=== PATIENT | male | born 1975 | race Two or more races ===

== ENCOUNTER 2018-04-12 09:27 | Inpatient (IN) | payer OTHER ==
[2018-04-12 09:30] VITALS: BMI 23.1
--- NOTE | 2018-04-12 10:53 | HP ---
CIWA Score Nausea/Vomitin Muscle Tremors: 4-Moderate,w/Arms Extend Anxiety: 4-Mod. Anxious/Guarded Agitation: 0-Normal Activity Paroxysmal Sweats: No Perspiration Orientation: 1-Uncertain about Date Tacttile Disturbances: 1-Very Mild Itch/Numbness Auditory Disturbances: 1-Very Mild Visual Disturbances: 1-Very Mild Sensitivity Headache: 1-Very Mild CIWA-Ar Total Score: 15 - Admission Criteria OASAS Guidelines: Admission for Medically Managed Detox: Requires at least one of the followin. CIWA greater than 12 2. Seizures within the past 24 hours 3. Delirium tremens within the past 24 hours 4. Hallucinations within the past 24 hours 5. Acute intervention needed for co occurring medical disorder 6. Acute intervention needed for co occurring psychiatric disorder 7. Severe withdrawal that cannot be handled at a lower level of care (continued vomiting, continued diarrhea, abnormal vital signs) requiring intravenous medication and/or fluids 8. Patient presents the following: CIWA greater than 12 Admission Criteria Met: Admission criteria met Admission ROS BHS - HPI Chief Complaint: I'm tired of being me, tired of my life, I don't want to be this way. Allergies/Adverse Reactions: Allergies Allergy/AdvReac Type Severity Reaction Status Date / Time haloperidol [From Haldol] Allergy Severe LOCK JAW Verified 04/12/18 12:36 haloperidol lactate Allergy Severe LOCK JAW Verified 04/12/18 12:36 [From Haldol] shellfish derived AdvReac Verified 04/12/18 12:11 LACTOSE INTOLERANCE AdvReac DIARRHEA Uncoded 04/12/18 12:10 History of Present Illness: 42 yo gentleman here for detox from alcohol, also using cocaine. Last her in 2013 but was in detox at [facility] December 2017. Patient is homeless since end of December, lost his job at same time all related to alcohol use. History of one drug related seizure years ago, also with history of black outs. Was brought to [facility] ED due to intoxication. States he drinks first thing in the morning (a 'nip' to get going) and gets very shaky if he does not drink. Exam Limitations: Clinical Condition - Ebola screening Have you traveled outside of the country in the last 21 days: No (N) Have you had contact with anyone from an Ebola affected area: No Have you been sick,other than usual withdrawal symptoms: No Do you have a fever: No - Review of Systems Constitutional: Malaise, Weakness EENT: reports: No Symptoms Reported Respiratory: reports: No Symptoms reported Cardiac: reports: No Symptoms Reported GI: reports: Nausea, Poor Appetite, Poor Fluid Intake : reports: Frequency Musculoskeletal: reports: No Symptoms Reported Integumentary: reports: Dryness Neuro: reports: Headache, Tremors Endocrine: reports: No Symptoms Reported Hematology: reports: No Symptoms Reported Psychiatric: reports: Judgement Intact, Mood/Affect Appropiate, Anxious Other Systems: Reviewed and Negative Patient History - Patient Medical History Hx Anemia: No Hx Asthma: No Hx Chronic Obstructive Pulmonary Disease (COPD): No Hx Cancer: No Hx Cardiac Disorders: No Hx Congestive Heart Failure: No Hx Hypertension: No Hx Hypercholesterolemia: No Hx Pacemaker: No HX Cerebrovascular Accident: No Hx Seizures: Yes (alcohol related years ago) Hx Dementia: No Hx Diabetes: No Hx Gastrointestinal Disorders: No Hx Liver Disease: No Hx Genitourinary Disorders: No Hx Sexually Transmitted Disorders: Yes (hx syphilis - got PCN injections) Hx Renal Disease (ESRD): No Hx Thyroid Disease: No Hx Human Immunodeficiency Virus (HIV): No Hx Hepatitis C: No Hx Depression: Yes (hospitalized - last time 2018 at [facility]) Hx Suicide Attempt: Yes ([place] [address] [place] 2017) Hx Bipolar Disorder: Yes Hx Schizophrenia: No - Patient Surgical History Past Surgical History: No - PPD History Previous Implant?: Yes Documented Results: Negative w/proof Implanted On Prior [facility] Admission?: Yes Date: 07/22/13 Results: Negative PPD to be Administered?: Yes - Reproductive History Patient is a Female of Child Bearing Age (11 -55 yrs old): No (male) - Smoking Cessation Smoking history: Current every day smoker Have you smoked in the past 12 months: Yes Aproximately how many cigarettes per day: 10 Hx Chewing Tobacco Use: No Initiated information on smoking cessation: Yes 'Breaking Loose' booklet given: 04/12/18 (give on floor) - Substance & Tx. History Hx Alcohol Use: Yes Hx Substance Use: Yes Substance Use Type: Alcohol, Cocaine Hx Substance Use Treatment: Yes (detox, rehab) - Substances Abused alcohol Route: Oral Frequency: Daily Amount used: 12 sixteen beers; 1/2 pint liquor Age of first use: 18 Date of Last Use: 04/11/18 cocaine Route: Smoking Frequency: Daily Amount used: $100 Age of first use: 28 Date of Last Use: 04/11/18 Family Disease History - Family Disease History Family Disease History: Diabetes: Daughter (one age 20 - healthy), Other: Grandparent (grdfather emphysema; grandma allive), Father (does not knw father), Mother (, pneumonia, HIV, heroin user), Brother (one - living ) , Sister (one - living), Daughter Admission Physical Exam [facility] - Vital Signs Vital Signs: Vital Signs - 24 hr 04/12/18 09:29 Temperature 97.2 F L Pulse Rate 76 Respiratory 18 Rate Blood Pressure 94/60 - Physical General Appearance: Yes: Nourished, Appropriately Dressed, Moderate Distress, Tremorous, Anxious HEENTM: Yes: EOMI, Hearing grossly Normal, Normocephalic, Normal Voice, Other ( tongue coated) Respiratory: Yes: Normal Breath Sounds, No Respiratory Distress Neck: Yes: No masses,lesions,Nodules, Supple Breast: Yes: Breast Exam Deferred Cardiology: Yes: Regular Rhythm, Regular Rate Abdominal: Yes: Flat, Soft Genitourinary: Yes: Frequency Back: Yes: Normal Inspection Musculoskeletal: Yes: full range of Motion, Gait Steady Extremities: Yes: Normal Inspection, Non-Tender Neurological: Yes: Alert, Normal Mood/Affect, Normal Response Integumentary: Yes: Normal Color, Warm, Rash (left side of neck - slightly raised, occasionally itchy discrete bumps) Lymphatic: Yes: Within Normal Limits - Diagnostic (1) Alcohol dependence with uncomplicated withdrawal Current Visit: Yes Status: Chronic (2) Cocaine dependence Current Visit: Yes Status: Chronic Qualifiers: Substance use status: uncomplicated Qualified Code(s): F14.20 - Cocaine dependence, uncomplicated (3) History of seizure Current Visit: Yes Status: Chronic (4) H/O syphilis Current Visit: Yes Status: Chronic (5) Nicotine dependence Current Visit: Yes Status: Chronic Qualifiers: Nicotine product type: cigarettes Substance use status: uncomplicated Qualified Code(s): F17.210 - Nicotine dependence, cigarettes, uncomplicated Cleared for Admission [facility] - Detox or Rehab [facility] Level of Care: Medically Managed Detox Regimen/Protocol: Librium S Breath Alcohol Content Breath Alcohol Content: 0 Urine Drug Screen - Results Drug Screen Negative: No Urine Drug Screen Results: TOMY-Cocaine Inpatient Rehab Admission - Rehab Decision to Admit Inpatient rehab admission?: No
[2018-04-12] MEDS ORDERED: MAGNESIUM CITRATE 300 ML BOTTLE PO PRN (11:07)
[2018-04-12] MEDS ORDERED: MENTHOL/PHENOL 1 EACH UD MM PRN (11:07)
[2018-04-12] MEDS ORDERED: chlordiazePOXIDE HCL 25 MG CAPSULE PO PRN (11:07)
[2018-04-12] MEDS ORDERED: MAGNESIUM HYDROX 2400MG/30ML ORAL SUSPENSION 30 ML CUP PO PRN (11:07)
[2018-04-12] MEDS ORDERED: ACETAMINOPHEN 325 MG TABLET (FP) PO PRN (11:07)
[2018-04-12] MEDS ORDERED: guaiFENesin/D-METHORPHAN HB 10 ML UNIT-DOSE CUPS PO PRN (11:07)
[2018-04-12] MEDS ORDERED: MAG HYDROX/AL HYDROX/SIMETH 30 ML UNIT-DOSE CUP PO PRN (11:07)
[2018-04-12] MEDS ORDERED: LOPERAMIDE HCL 2 MG CAPSULE PO PRN (11:07)
[2018-04-12] MEDS ORDERED: P-EPHED 60MG/TRIPROLIDI 2.5MG TABLET PO PRN (11:07)
[2018-04-12] MEDS ORDERED: IBUPROFEN 400 MG TABLET (FP) PO PRN (11:07)
[2018-04-12] MEDS ORDERED: NICOTINE POLACRILEX 4 MG GUM BUC PRN (11:26)
[2018-04-12] MEDS: NICOTINE 14 MG/24 HOURS TOPICAL PATCH TD SCH (13:52)
[2018-04-12] MEDS: chlordiazePOXIDE HCL 25 MG CAPSULE PO SCH ×2 (18:42→22:42)
[2018-04-12] MEDS: THIAMINE HCL 100 MG TABLET (FP) PO SCH (22:42)
[2018-04-13] MEDS: chlordiazePOXIDE HCL 25 MG CAPSULE PO SCH ×4 (06:44→22:56)
--- NOTE | 2018-04-13 09:18 | CONSULT ---
[facility] Psychiatric Consult - Data Date of interview: 04/13/18 Admission source: [facility] Identifying data: Mr Fay is a 42 years old single Black male, father of a 19 years old daughter, unemployed receiving food stamp, homeless seeking detox treatment alcohol and cocaine Substance Abuse History: Reports history of alcohol and crack cocaine use. He started drinking alcohol at age 18, consumes half a pint of liquor & 12x 16oz of beer daily. Last drank on 04/11/18. He started smoking crack cocaine at age 28 , consumes $100 worth daily. Last smoked on 04/11/18. Refer to addiction counselor 's summary for further information Medical History: Significant for history of alcohol withdrawal seizure and treatment for syphilis. Smokes 10 cigarettes daily Psychiatric History: Patient is well known to creative writer from a previous encounter during an admission in this facility in July 2013. He reports history of Bipolar Disorder diagnosed in 2007 and has had more than 5 psychiatric inpatient hospitalizations. Still reports non-compliance with psychiatric outpatient services but visits ED for medication refills. Reports currently taking Zyprexa 5 mg po daily and Zoloft 50 mg po daily. External pharmacy record shows script for Olanzapine 5 mg#7 on 01/21/18 by provider Wero Castro. Acknowledges one suicidal attempt in 2011 [place] [address] [place]. At present feels very irritable and reports sleeping poorly Physical/Sexual Abuse/Trauma History: Denies history of emotional, physical or sexual abuse as well as DV relationship. No service Additional Comment: Reluctant to provide legal information Mental Status Exam - Mental Status Exam Alert and Oriented to: Time, Place, Person Cognitive Function: Fair Patient Appearance: Well Groomed Mood: Irritable Affect: Appropriate Patient Behavior: Cooperative Speech Pattern: Clear Voice Loudness: Normal Thought Process: Intact, Goal Oriented Thought Disorder: Not Present Hallucinations: Denies Suicidal Ideation: Denies Homicidal Ideation: Denies Insight/Judgement: Fair Sleep: Poorly Appetite: Fair Muscle strength/Tone: Normal Gait/Station: Normal Psychiatric Findings - Problem List ([place] 1, 2,3) (1) Bipolar disorder Current Visit: No Status: Chronic (2) Substance induced mood disorder Current Visit: Yes Status: Acute (3) Substance-induced sleep disorder Current Visit: Yes Status: Acute (4) Alcohol dependence with uncomplicated withdrawal Current Visit: Yes Status: Acute (5) Cocaine dependence Current Visit: Yes Status: Acute Qualifiers: Substance use status: uncomplicated Qualified Code(s): F14.20 - Cocaine dependence, uncomplicated (6) Nicotine dependence Current Visit: Yes Status: Chronic Qualifiers: Nicotine product type: cigarettes Substance use status: uncomplicated Qualified Code(s): F17.210 - Nicotine dependence, cigarettes, uncomplicated (7) H/O syphilis Current Visit: Yes Status: Chronic (8) History of seizure Current Visit: Yes Status: Chronic - Initial Treatment Plan Initial Treatment Plan: 1) Continue Zoloft 50 mg po daily and Zyprexa 5 mg po daily. 2) Continue inpatient detoxification
[2018-04-13 10:18] LABS: HEMATOCRIT 40.2 % (35.4-49); HEMOGLOBIN 13.3 GM/dL (11.7-16.9); MCH 29.7 pg (25.7-33.7); MEAN PLT VOLUME 8.3 fl (7.5-11.1); PLATELET COUNT 231 K/MM3 (134-434); RBC 4.47 M/mm3 (4.00-5.60); RDW 14.6 % (11.9-15.9); WHITE BLOOD COUNT 4.3 K/mm3 (4.0-10.0)
[2018-04-13] MEDS: PRENATAL VITAMINS W/ FOLIC ACID TABLET (FP) PO SCH (10:20)
[2018-04-13] MEDS: NICOTINE 14 MG/24 HOURS TOPICAL PATCH TD SCH (10:20)
[2018-04-13 10:39] LABS: ALBUMIN 3.2 g/dl (3.4-5.0); ALK PHOS 79 U/L (45-117); ANION GAP 5 MMOL/L (8-16); BILIRUBIN,TOTAL 0.1 mg/dL (0.2-1); BLOOD UREA NITROGEN 11 mg/dL (7-18); CALCIUM 8.4 mg/dL (8.5-10.1); CHLORIDE 107 mmol/L (98-107); CO2 27 mmol/L (21-32); CREATININE 0.9 mg/dL (0.55-1.3); GLUCOSE,RANDOM 89 mg/dL (74-106); POTASSIUM 4.3 mmol/L (3.5-5.1); SGOT/AST 15 U/L (15-37); SGPT/ALT 19 U/L (13-61); SODIUM 140 mmol/L (136-145)
[2018-04-13] MEDS: OLANZapine 5 MG TABLET PO SCH (11:37)
[2018-04-13] MEDS: SERTRALINE HCL 50 MG TABLET (FP) PO SCH (11:37)
--- NOTE | 2018-04-13 11:49 | PN ---
S CIWA - CIWA Score Nausea/Vomitin-Mild Nausea/No Vomiting Muscle Tremors: 4-Moderate,w/Arms Extend Anxiety: 3 Agitation: 2 Paroxysmal Sweats: 1-Minimal Palms Moist Orientation: 1-Uncertain about Date Tacttile Disturbances: 0-None Auditory Disturbances: 0-None Visual Disturbances: 0-None Headache: 2-Mild CIWA-Ar Total Score: 14 BHS Progress Note (SOAP) Subjective: tremor sweat restlessness irritable Objective: 04/13/18 11:50 Vital Signs Temperature 97.3 F L 04/13/18 09:34 Pulse Rate 66 04/13/18 09:34 Respiratory Rate 18 04/13/18 09:34 Blood Pressure 107/60 04/13/18 09:34 O2 Sat by Pulse Oximetry (%) Laboratory Last Values WBC 4.3 K/mm3 (4.0-10.0) 04/13/18 07:45 RBC 4.47 M/mm3 (4.00-5.60) 04/13/18 07:45 Hgb 13.3 GM/dL (11.7-16.9) 04/13/18 07:45 Hct 40.2 % (35.4-49) 04/13/18 07:45 MCV 90.0 fl (80-96) 04/13/18 07:45 MCH 29.7 pg (25.7-33.7) 04/13/18 07:45 MCHC 33.0 g/dl (32.0-35.9) 04/13/18 07:45 RDW 14.6 % (11.9-15.9) D 04/13/18 07:45 Plt Count 231 K/MM3 (134-434) D 04/13/18 07:45 MPV 8.3 fl (7.5-11.1) 04/13/18 07:45 Sodium 140 mmol/L (136-145) 04/13/18 07:45 Potassium 4.3 mmol/L (3.5-5.1) 04/13/18 07:45 Chloride 107 mmol/L (98-107) 04/13/18 07:45 Carbon Dioxide 27 mmol/L (21-32) 04/13/18 07:45 Anion Gap 5 MMOL/L (8-16) L 04/13/18 07:45 BUN 11 mg/dL (7-18) 04/13/18 07:45 Creatinine 0.9 mg/dL (0.55-1.3) 04/13/18 07:45 Creat Clearance w eGFR > 60 (>60) 04/13/18 07:45 Random Glucose 89 mg/dL (74-106) 04/13/18 07:45 Calcium 8.4 mg/dL (8.5-10.1) L 04/13/18 07:45 Total Bilirubin 0.1 mg/dL (0.2-1) L 04/13/18 07:45 AST 15 U/L (15-37) 04/13/18 07:45 ALT 19 U/L (13-61) 04/13/18 07:45 Alkaline Phosphatase 79 U/L (45-117) 04/13/18 07:45 Total Protein 6.0 g/dl (6.4-8.2) L 04/13/18 07:45 Albumin 3.2 g/dl (3.4-5.0) L 04/13/18 07:45 HIV 1&2 Antibody Screen Negative 04/13/18 07:45 HIV P24 Antigen Negative 04/13/18 07:45 lab noted 04/13/18 11:51 report rpr 1:1 Assessment: 04/13/18 11:50 withdrawal sx Plan: continue detox
[2018-04-13 12:09] LABS: RPR REACTIVE 1:1 (NONREACTIVE)
[2018-04-13 12:11] LABS: TREPONEMA ANTIBODY PREVIOUSLY REACTIVE (NONREACTIVE)
[2018-04-13] MEDS: THIAMINE HCL 100 MG TABLET (FP) PO SCH (22:55)
[2018-04-13] MEDS: MELATONIN 5 MG TABLETS PO PRN (22:57)
[2018-04-14] MEDS: chlordiazePOXIDE HCL 25 MG CAPSULE PO SCH ×2 (06:14→10:07)
[2018-04-14] MEDS: SERTRALINE HCL 50 MG TABLET (FP) PO SCH (10:08)
[2018-04-14] MEDS: OLANZapine 5 MG TABLET PO SCH (10:08)
[2018-04-14] MEDS: PRENATAL VITAMINS W/ FOLIC ACID TABLET (FP) PO SCH (10:08)
[2018-04-14] MEDS: NICOTINE 14 MG/24 HOURS TOPICAL PATCH TD SCH (10:09)
--- NOTE | 2018-04-14 10:57 | PN ---
S CIWA - CIWA Score Nausea/Vomitin-Mild Nausea/No Vomiting Muscle Tremors: 3 Anxiety: 2 Agitation: 3 Paroxysmal Sweats: 1-Minimal Palms Moist Orientation: 1-Uncertain about Date Tacttile Disturbances: 0-None Auditory Disturbances: 0-None Visual Disturbances: 0-None Headache: 1-Very Mild CIWA-Ar Total Score: 12 S Progress Note (SOAP) Subjective: tremor sweating restlessness Objective: 04/14/18 10:58 Vital Signs Temperature 97.0 F L 04/14/18 09:34 Pulse Rate 98 H 04/14/18 09:34 Respiratory Rate 20 04/14/18 09:34 Blood Pressure 116/83 04/14/18 09:34 O2 Sat by Pulse Oximetry (%) Laboratory Last Values WBC 4.3 K/mm3 (4.0-10.0) 04/13/18 07:45 RBC 4.47 M/mm3 (4.00-5.60) 04/13/18 07:45 Hgb 13.3 GM/dL (11.7-16.9) 04/13/18 07:45 Hct 40.2 % (35.4-49) 04/13/18 07:45 MCV 90.0 fl (80-96) 04/13/18 07:45 MCH 29.7 pg (25.7-33.7) 04/13/18 07:45 MCHC 33.0 g/dl (32.0-35.9) 04/13/18 07:45 RDW 14.6 % (11.9-15.9) D 04/13/18 07:45 Plt Count 231 K/MM3 (134-434) D 04/13/18 07:45 MPV 8.3 fl (7.5-11.1) 04/13/18 07:45 Sodium 140 mmol/L (136-145) 04/13/18 07:45 Potassium 4.3 mmol/L (3.5-5.1) 04/13/18 07:45 Chloride 107 mmol/L (98-107) 04/13/18 07:45 Carbon Dioxide 27 mmol/L (21-32) 04/13/18 07:45 Anion Gap 5 MMOL/L (8-16) L 04/13/18 07:45 BUN 11 mg/dL (7-18) 04/13/18 07:45 Creatinine 0.9 mg/dL (0.55-1.3) 04/13/18 07:45 Creat Clearance w eGFR > 60 (>60) 04/13/18 07:45 Random Glucose 89 mg/dL (74-106) 04/13/18 07:45 Calcium 8.4 mg/dL (8.5-10.1) L 04/13/18 07:45 Total Bilirubin 0.1 mg/dL (0.2-1) L 04/13/18 07:45 AST 15 U/L (15-37) 04/13/18 07:45 ALT 19 U/L (13-61) 04/13/18 07:45 Alkaline Phosphatase 79 U/L (45-117) 04/13/18 07:45 Total Protein 6.0 g/dl (6.4-8.2) L 04/13/18 07:45 Albumin 3.2 g/dl (3.4-5.0) L 04/13/18 07:45 RPR Titer Reactive 1:1 (NONREACTIVE) H 04/13/18 07:45 T.pallidum Ab (MHA) Previously reactive (NONREACTIVE) 04/13/18 07:45 HIV 1&2 Antibody Screen Negative 04/13/18 07:45 HIV P24 Antigen Negative 04/13/18 07:45 lab noted history of syphilis treated with penicillin Assessment: 04/14/18 10:58 withdrawal sx Plan: continue detox
[2018-04-14] MEDS: chlordiazePOXIDE 5 MG CAPSULE PO SCH ×2 (17:34→22:26)
[2018-04-14] MEDS: THIAMINE HCL 100 MG TABLET (FP) PO SCH (22:26)
[2018-04-14] MEDS: MELATONIN 5 MG TABLETS PO PRN (22:26)
[2018-04-15] MEDS: chlordiazePOXIDE 5 MG CAPSULE PO SCH ×2 (05:32→10:35)
[2018-04-15] MEDS: PRENATAL VITAMINS W/ FOLIC ACID TABLET (FP) PO SCH (10:32)
[2018-04-15] MEDS: NICOTINE 14 MG/24 HOURS TOPICAL PATCH TD SCH (10:32)
[2018-04-15] MEDS: OLANZapine 5 MG TABLET PO SCH (10:33)
[2018-04-15] MEDS: SERTRALINE HCL 50 MG TABLET (FP) PO SCH (10:33)
--- NOTE | 2018-04-15 14:36 | PN ---
S CIWA - CIWA Score Nausea/Vomitin-No Nausea/No Vomiting Muscle Tremors: 1-None Visible, but [place] Anxiety: 2 Agitation: 1-Slight > Activity Paroxysmal Sweats: 1-Minimal Palms Moist Orientation: 1-Uncertain about Date Tacttile Disturbances: 0-None Auditory Disturbances: 0-None Visual Disturbances: 0-None Headache: 1-Very Mild CIWA-Ar Total Score: 7 BHS Progress Note (SOAP) Subjective: feeling better mild tremor less sweating sleep better at night Objective: 04/15/18 14:35 Vital Signs Temperature 97.7 F 04/15/18 13:33 Pulse Rate 74 04/15/18 13:33 Respiratory Rate 18 04/15/18 13:33 Blood Pressure 102/68 04/15/18 13:33 O2 Sat by Pulse Oximetry (%) Laboratory Tests 04/13/18 04/13/18 04/13/18 07:45 07:45 07:45 WBC 4.3 RBC 4.47 Hgb 13.3 Hct 40.2 MCV 90.0 MCH 29.7 MCHC 33.0 RDW 14.6 D Plt Count 231 D MPV 8.3 Sodium 140 Potassium 4.3 Chloride 107 Carbon Dioxide 27 Anion Gap 5 L BUN 11 Creatinine 0.9 Creat Clearance w eGFR > 60 Random Glucose 89 Calcium 8.4 L Total Bilirubin 0.1 L AST 15 ALT 19 Alkaline Phosphatase 79 Total Protein 6.0 L Albumin 3.2 L RPR Titer Reactive 1:1 H T.pallidum Ab (MHA) Previously reactive HIV 1&2 Antibody Screen HIV P24 Antigen 04/13/18 07:45 WBC RBC Hgb Hct MCV MCH MCHC RDW Plt Count MPV Sodium Potassium Chloride Carbon Dioxide Anion Gap BUN Creatinine Creat Clearance w eGFR Random Glucose Calcium Total Bilirubin AST ALT Alkaline Phosphatase Total Protein Albumin RPR Titer T.pallidum Ab (MHA) HIV 1&2 Antibody Screen Negative HIV P24 Antigen Negative 04/15/18 14:36 Laboratory Last Values WBC 4.3 K/mm3 (4.0-10.0) 04/13/18 07:45 RBC 4.47 M/mm3 (4.00-5.60) 04/13/18 07:45 Hgb 13.3 GM/dL (11.7-16.9) 04/13/18 07:45 Hct 40.2 % (35.4-49) 04/13/18 07:45 MCV 90.0 fl (80-96) 04/13/18 07:45 MCH 29.7 pg (25.7-33.7) 04/13/18 07:45 MCHC 33.0 g/dl (32.0-35.9) 04/13/18 07:45 RDW 14.6 % (11.9-15.9) D 04/13/18 07:45 Plt Count 231 K/MM3 (134-434) D 04/13/18 07:45 MPV 8.3 fl (7.5-11.1) 04/13/18 07:45 Sodium 140 mmol/L (136-145) 04/13/18 07:45 Potassium 4.3 mmol/L (3.5-5.1) 04/13/18 07:45 Chloride 107 mmol/L (98-107) 04/13/18 07:45 Carbon Dioxide 27 mmol/L (21-32) 04/13/18 07:45 Anion Gap 5 MMOL/L (8-16) L 04/13/18 07:45 BUN 11 mg/dL (7-18) 04/13/18 07:45 Creatinine 0.9 mg/dL (0.55-1.3) 04/13/18 07:45 Creat Clearance w eGFR > 60 (>60) 04/13/18 07:45 Random Glucose 89 mg/dL (74-106) 04/13/18 07:45 Calcium 8.4 mg/dL (8.5-10.1) L 04/13/18 07:45 Total Bilirubin 0.1 mg/dL (0.2-1) L 04/13/18 07:45 AST 15 U/L (15-37) 04/13/18 07:45 ALT 19 U/L (13-61) 04/13/18 07:45 Alkaline Phosphatase 79 U/L (45-117) 04/13/18 07:45 Total Protein 6.0 g/dl (6.4-8.2) L 04/13/18 07:45 Albumin 3.2 g/dl (3.4-5.0) L 04/13/18 07:45 RPR Titer Reactive 1:1 (NONREACTIVE) H 04/13/18 07:45 T.pallidum Ab (MHA) Previously reactive (NONREACTIVE) 04/13/18 07:45 HIV 1&2 Antibody Screen Negative 04/13/18 07:45 HIV P24 Antigen Negative 04/13/18 07:45 lab noted Assessment: 04/15/18 14:36 mild withdrawal sx Plan: continue detox
[2018-04-15] MEDS: chlordiazePOXIDE HCL 10 MG CAPSULE PO SCH ×2 (18:20→23:01)
[2018-04-15] MEDS: THIAMINE HCL 100 MG TABLET (FP) PO SCH (22:50)
[2018-04-16] MEDS: chlordiazePOXIDE HCL 10 MG CAPSULE PO SCH ×2 (05:29→10:18)
[2018-04-16 10:01] VITALS: BP 108/64; PULSE 89; TEMP 96.9
[2018-04-16] MEDS: SERTRALINE HCL 50 MG TABLET (FP) PO SCH (10:17)
[2018-04-16] MEDS: PRENATAL VITAMINS W/ FOLIC ACID TABLET (FP) PO SCH (10:17)
[2018-04-16] MEDS: OLANZapine 5 MG TABLET PO SCH (10:17)
[2018-04-16] MEDS: NICOTINE 14 MG/24 HOURS TOPICAL PATCH TD SCH (10:18)
--- NOTE | 2018-04-16 14:58 | DS ---
[facility] Detox Discharge Summary Admission Date: 04/12/18 Discharge Date: 04/16/18 - History Present History: Alcohol Dependence Additional Comments: 42 years old male admitted on 04/12/18 for alcohol withdrawal stabilization completed detox regimen aftercare [facility] Physical Exam Results Vital Signs: Vital Signs Temperature 96.9 F L 04/16/18 10:00 Pulse Rate 89 04/16/18 10:00 Respiratory Rate 18 04/16/18 10:00 Blood Pressure 108/64 04/16/18 10:00 O2 Sat by Pulse Oximetry (%) Pertinent Admission Physical Exam Findings: alcohol withdrawal sx Laboratory Last Values WBC 4.3 K/mm3 (4.0-10.0) 04/13/18 07:45 RBC 4.47 M/mm3 (4.00-5.60) 04/13/18 07:45 Hgb 13.3 GM/dL (11.7-16.9) 04/13/18 07:45 Hct 40.2 % (35.4-49) 04/13/18 07:45 MCV 90.0 fl (80-96) 04/13/18 07:45 MCH 29.7 pg (25.7-33.7) 04/13/18 07:45 MCHC 33.0 g/dl (32.0-35.9) 04/13/18 07:45 RDW 14.6 % (11.9-15.9) D 04/13/18 07:45 Plt Count 231 K/MM3 (134-434) D 04/13/18 07:45 MPV 8.3 fl (7.5-11.1) 04/13/18 07:45 Sodium 140 mmol/L (136-145) 04/13/18 07:45 Potassium 4.3 mmol/L (3.5-5.1) 04/13/18 07:45 Chloride 107 mmol/L (98-107) 04/13/18 07:45 Carbon Dioxide 27 mmol/L (21-32) 04/13/18 07:45 Anion Gap 5 MMOL/L (8-16) L 04/13/18 07:45 BUN 11 mg/dL (7-18) 04/13/18 07:45 Creatinine 0.9 mg/dL (0.55-1.3) 04/13/18 07:45 Creat Clearance w eGFR > 60 (>60) 04/13/18 07:45 Random Glucose 89 mg/dL (74-106) 04/13/18 07:45 Calcium 8.4 mg/dL (8.5-10.1) L 04/13/18 07:45 Total Bilirubin 0.1 mg/dL (0.2-1) L 04/13/18 07:45 AST 15 U/L (15-37) 04/13/18 07:45 ALT 19 U/L (13-61) 04/13/18 07:45 Alkaline Phosphatase 79 U/L (45-117) 04/13/18 07:45 Total Protein 6.0 g/dl (6.4-8.2) L 04/13/18 07:45 Albumin 3.2 g/dl (3.4-5.0) L 04/13/18 07:45 RPR Titer Reactive 1:1 (NONREACTIVE) H 04/13/18 07:45 T.pallidum Ab (MHA) Previously reactive (NONREACTIVE) 04/13/18 07:45 HIV 1&2 Antibody Screen Negative 04/13/18 07:45 HIV P24 Antigen Negative 04/13/18 07:45 lab noted - Treatment Hospital Course: Detox Protocol Followed, Detoxed Safely, Responded well, Discharged Condition Good, Rehab Referral Accepted Patient has Accepted a Rehab Referral to: [facility] - Medication Discharge Medications: Ambulatory Orders Olanzapine [Zyprexa -] 5 mg PO DAILY 04/12/18 Sertraline HCl [Zoloft -] 50 mg PO DAILY 04/12/18 - Diagnosis (1) Alcohol dependence with uncomplicated withdrawal Current Visit: Yes Status: Acute (2) Substance induced mood disorder Current Visit: Yes Status: Suspected (3) Nicotine dependence Current Visit: Yes Status: Acute Qualifiers: Nicotine product type: cigarettes Substance use status: in withdrawal Qualified Code(s): F17.213 - Nicotine dependence, cigarettes, with withdrawal - AMA Did Patient Leave Against Medical Advice: No
== END 2018-04-16 16:30 | disposition home or self-care (01) | DRG 774 ==
LOC: YASAS 09:27 → Y3N 12:25
PROVIDERS: ADMIT Surgery; ATTEND Surgery
PROC: HZ2ZZZZ Detoxification Services for Substance Abuse Treatment (ICD-10-PCS; principal; 2018-04-12)
DX: F10.230 Alcohol dependence with withdrawal, uncomplicated (principal); F14.20 Cocaine dependence, uncomplicated; F17.213 Nicotine dependence, cigarettes, with withdrawal; F19.24 Other psychoactive substance dependence with psychoactive substance-induced mood disorder; F19.282 Other psychoactive substance dependence with psychoactive substance-induced sleep disorder; F31.9 Bipolar disorder, unspecified; Z86.69 Personal history of other diseases of the nervous system and sense organs; Z91.013 Allergy to seafood; Z88.8 Allergy status to other drugs, medicaments and biological substances; Z91.5 Personal history of self-harm; Z87.438 Personal history of other diseases of male genital organs
CPT/HCPCS: 36415; 80053; 85027; 86593; 86780; 87389